=== PATIENT | male | born 1995 | race Caucasian/White ===

== ENCOUNTER 2022-03-01 20:38 | Emergency (ER) | payer OTHER, SELFPAY ==
[2022-03-01 20:40] VITALS: BP 131/83; PULSE 72; RESP 18; TEMP 37.1; O2SAT 99
--- NOTE | 2022-03-01 22:35 | PC.NURSE ---
pt seen ambulating with a steady gait and in no obvious distress out of building. pt heard yelling expletives.
== END 2022-03-01 22:35 | disposition left against medical advice (07) ==
LOC: ANHED 22:41
DX: R10.30 Lower abdominal pain, unspecified (principal)
CPT/HCPCS: 99199

== ENCOUNTER 2022-03-01 23:00 | Emergency (ER) | payer OTHER, SELFPAY ==
--- NOTE | 2022-03-01 23:08 | PC.NURSE ---
pt visitor up to desk asking why he is now at bottom of the list even though they left to get medicine . pt upset he is now at bottom of triage tracker. pt reporting you didn't see me leaving? . to which I responded, you walked out without talking to us and were heard cussing. pt stated, i can cuss if I want. to which I replied I have no problem calling [place] as we do not tolerate verbal aggression. kristine rultedge, and myself both at intake desk during this interaction.
--- NOTE | 2022-03-01 23:10 | PC.NURSE ---
pt tore off wrist band and ambulatory with steady gait out of building in no obvious distress. pt asked if he was leaving and he stated yeah. I'm out . pt visitor yelled thanks for nothing! .
== END 2022-03-01 23:10 | disposition left against medical advice (07) ==
LOC: ANHED 23:15
DX: R10.30 Lower abdominal pain, unspecified (principal)
CPT/HCPCS: 99199